=== PATIENT | male | born 1955 | race Caucasian/White ===

== ENCOUNTER → 2019-08-26 10:34 | Outpatient (BNVA) | payer BC, SELFPAY | PROVIDERS: PCP Nurse Practitioner; Visit Provider Nurse Practitioner | DX: Z00.00 Encounter for general adult medical examination without abnormal findings (principal); Z12.5 Encounter for screening for malignant neoplasm of prostate; I10 Essential (primary) hypertension; F52.21 Male erectile disorder | CPT/HCPCS: 81003 ==

== ENCOUNTER → 2019-08-28 09:10 | Outpatient (BNVA) | payer BC, SELFPAY | PROVIDERS: PCP Nurse Practitioner; Visit Provider Nurse Practitioner | DX: Z00.00 Encounter for general adult medical examination without abnormal findings (principal); Z12.5 Encounter for screening for malignant neoplasm of prostate | CPT/HCPCS: 80053; 80061; 83721; G0103 ==

== ENCOUNTER → 2020-05-06 13:04 | Outpatient (BNVA) | payer BC, SELFPAY | PROVIDERS: PCP Nurse Practitioner; Visit Provider Nurse Practitioner Family | DX: Z20.828 Contact with and (suspected) exposure to other viral communicable diseases (principal); Z01.812 Encounter for preprocedural laboratory examination | CPT/HCPCS: 87635 ==

== ENCOUNTER 2020-08-17 10:54 | Observation (INO) | payer OTHER, SELFPAY ==
[2020-08-17] VITALS (17 sets, daily range): BP systolic 122–134; BP diastolic 68–82; PULSE 58–81; RESP 15–25; TEMP 36.5–36.8; O2SAT 91–98; BMI 34.4
--- NOTE | 2020-08-17 10:55 | ECG_ITS ---
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 Measurements Intervals [place] Rate: 67 P: 56 OK: 149 QRS: 21 QRSD: 98 T: 7 QT: 389 QTc: 412 Interpretive Statements SINUS RHYTHM POSSIBLE RIGHT VENTRICULAR CONDUCTION DELAY [RSR (QR) IN V1/V2] NONSPECIFIC T-WAVE ABNORMALITY No previous ECG available for comparison Electronically Signed On 08-17-2020 17:37:30 BILINGUAL RECEPTIONIST by Mac Rojas M.D. [id number] f
--- NOTE | 2020-08-17 10:55 | XR_ITS ---
WS: [id number] Exam: XR chest 1V portable [id number] Date/Time of Exam: 08/17/2020 10:56 AM Reason For Exam: chest pain Findings: The lungs are clear and fully expanded. Costophrenic angles are sharp. No infiltrates. Bronchovascula r relief appears normal. Cardiac silhouette is unremarkable. Bony elements are intact. XR/XR chest 1V portable [id number] IMPRESSION: Unremarkable chest radiograph.
--- NOTE | 2020-08-17 11:16 | W.ED.CHESTPA ---
Documented by User: Jed Lawrence MD 08/17/20 14:26 HPI - Chest Pain History of Present Illness: HPI narrative: The patient is a 65 year old male who comes to ED complaining of midsternal chest pain that started this morning. He went to see his primary care physician who gave him a nitroglycerin, aspirin 325, and started him on oxygen. Within a few minutes of the nitroglycerin pill dissolving in his mouth his chest pain resolved and in the ED he is chest pain-free. The only medication he takes regularly is venlafaxine. He says he has no prior cardiac history but does have obstructive sleep apnea and twice in the past year he has slept without it and had similar midsternal chest pain. He says this particular episode has been going on and off for the past week. This episode today started at rest MD complaint: chest pain Prior episodes: Yes Onset: during rest Pain location: substernal Severity: moderate Relieving factors: nitroglycerin Exacerbating factors: nothing Associated symptoms: Reports no associated symptoms; Deny abdominal pain, dyspnea or palpitations Review of Systems General: Reports: 10 or more systems reviewed and unremarkable except in HPI and below Const: Denies: fatigue Eyes: Denies: change in vision, blurry vision or eye redness ENMT: Denies: throat pain, swelling of lips/tongue, ear or mastoid pain or nasal congestion Card: Reports: chest pain (No chest pain in the ED. He had pain in the primary care's office); Denies: palpitations, irregular heart rhythm, edema, dyspnea on exertion or orthopnea Resp: Denies: dyspnea, productive cough or non-productive cough GI: Denies: abdominal pain, diarrhea or GI cramping : Denies: flank pain, urinary frequency or urinary urgency Musc: Denies: neck pain, back pain, extremity pain, joint pain, joint redness, limited range of motion or muscle weakness Skin/Breast: Denies: rash, pruritus, erythema, skin pain or skin tenderness Neuro: Denies: headache(s), numbness in extremities, weakness in extremities, sensory changes, difficulty walking, dizziness, confusion or Slurred speech present Psych: Denies: anxiety or depression Endo: Denies: polyuria All/Imm: Denies: urticaria, throat swelling or tongue swelling PFS ED PFSH: Medical History (Updated 08/17/20 @ 14:25 by Jed Lawrence MD) 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 History of elevated prostate specific antigen (PSA) Inability to attain erection Nausea Psoriasiform dermatitis Surgical History History of appendectomy History of cholecystectomy History of colonoscopy with polypectomy 2019 in [place], [place] History of hemorrhoids Family History Father Cancer Mother Cancer Social History Smoking and tobacco status: former smoker Second hand smoke exposure: No Smoking risk assessment/counseling performed?: No Alcohol intake: current Alcohol intake frequency: holidays/special occasions only Desire information about alcohol rehabilitation?: No Counseling given: No Desire information about substance/drug rehabilitation?: No Counseling given: No Adopted: No Caregiver/support person: No Lives independently: Yes Household members: spouse Housing: House Marital status: Number of children: 2 service: No Current occupational status: retired Pets and animals: Yes Pets & animals: dog(s) History of recent travel: No Current gender identity: Male Physical Exam Const: COMMON NORMALS: no acute distress, average body habitus, patient oriented x3, no limitations, healthy appearing, alert and well nourished GENERAL APPEARANCE: cooperative, comfortable, well kempt and well developed ORIENTATION/CONSCIOUSNESS: Yes awake, Yes oriented to person, Yes oriented to place and Yes oriented to time HENMT: COMMON NORMALS: normocephalic, external ears normal and Normal external nose present HEAD & SCALP: normal to inspection and normocephalic NOSE: Normal external nose present EXTERNAL EAR: Yes external ears normal MOUTH: Normal oral and palatal mucosa present THROAT: posterior oropharynx normal Eye: COMMON NORMALS: Equal, round and reactive pupils present and EOMs intact bilaterally GENERAL EYE: appearance normal, both eyes and all related structures PUPIL: Yes Equal, round and reactive pupils present Neck/C-Spine: COMMON NORMALS: full ROM, no lymphadenopathy, no meningeal signs and no JVD GENERAL: Yes normal visual inspection Lymph: LYMPHATIC: no lymphadenopathy noted Chest: COMMONS NORMALS: normal inspection of the chest and normal palpation of entire chest wall Resp: COMMON NORMALS: normal respiratory effort, No retractions, No use of accessory muscles, clear to auscultation bilaterally and percussion normal EFFORT & INSPECTION: Yes able to speak in complete sentences AUSCULTATION: clear to auscultation bilaterally PERCUSSION: percussion normal Cardio: COMMON NORMALS: no JVD, regular rate, regular rhythm, S1 normal heart sound present, S2 normal heart sound present and Peripheral pulses 2+ throughout RATE: regular rate RHYTHM: regular rhythm HEART SOUNDS: S1 normal heart sound present and S2 normal heart sound present PERIPHERAL PULSES: Peripheral pulses 2+ throughout GI: COMMON NORMALS: Normal to inspection, nondistended, normoactive bowel sounds present, Soft to palpation, non-tender and no masses INSPECTION: Yes normal to inspection PALPATION: Yes Soft to palpation : COMMON NORMALS: Yes no CVA tenderness BLADDER/KIDNEY EXAM: Yes no CVA tenderness Back/Pelvis: COMMON NORMALS: no CVA tenderness, thoracic and lumbar spine normal to inspection, no thoracic nor lumbar tenderness and thoraco-lumbar ROM normal Extremity: COMMON NORMALS: normal to inspection, full ROM, capillary refill normal, no joint enlargement and no pedal edema GENERAL: Yes normal exam except as noted Neuro: COMMON NORMALS: patient oriented x3, CN's II-XII intact bilaterally, moves all extremities, no focal motor deficits, no sensory deficits noted and gait normal SENSORIUM/ORIENTATION: Yes alert, Yes oriented to person, Yes oriented to place and Yes oriented to time MENINGEAL SIGNS: Yes no meningeal signs Psych: COMMON NORMALS: mental status grossly normal, Normal thought process present, cooperative, normal affect and speech normal APPEARANCE: Yes well kempt ATTITUDE: Yes calm SPEECH: Yes normal speech THOUGHT PROCESS: Normal thought process present Skin: COMMON NORMALS: no rashes or lesions noted GENERAL SKIN EXAM: no rashes or lesions noted Course Vital Signs: Vital signs: Vital Signs Temperature 98.3 F 08/17/20 10:55 Pulse Rate 67 08/17/20 14:10 Respiratory Rate 23 H 08/17/20 14:10 Blood Pressure 127/82 08/17/20 14:10 Pulse Oximetry 96 08/17/20 14:10 MDM - Chest Pain MDM Narrative: Medical decision making narrative: Patient continues to have palpitations here and some left-sided chest pressure. He also has episodes of bradycardia down into the upper 40s low 50s. This is unusual for him. Discussed with Dr. Wilder who accepts for observation. Discussed the case with Dr. Brand who will see him upstairs Lab Data: Labs: Lab Results 08/17/20 08/17/20 08/17/20 Range/Units 11:20 11:20 11:20 WBC 5.6 (4.0-10.0) 10^3/ uL RBC 5.24 (4.1-5.3) 10^6/u L Hgb 15.1 (11.7-16.6) g/dL Hct 44.2 (42.0-52.0) % MCV 84.4 (80-94) fL MCH 28.8 (28.0-34.0) pg MCHC 34.2 (30.0-36.0) g/dL RDW 12.5 (12.1-15.1) % Plt Count 239 (130-400) 10^3/c mm MPV 9.1 (7.4-10.4) fL Neut % (Auto) 55.8 % Lymph % (Auto) 31.0 % Price % (Auto) 11.2 % Eos % (Auto) 1.3 % Baso % (Auto) 0.5 % Neut # (Auto) 3.10 (1.8-7.7) 10^3/u L Lymph # (Auto) 1.7 (0.8-4.8) 10^3/u L Price # (Auto) 0.6 (0.2-0.9) 10^3/u L Eos # (Auto) 0.1 (0.0-0.8) 10^3/u L Baso # (Auto) 0.0 (0.0-0.1) 10^3/u L Nucleated RBC % (a uto) 0 % Nucleated RBCs # 0.0 /100WBC D-Dimer (0-0.59) ug/mIFE U Sodium 141 (136-145) mmol/L Potassium 4.4 (3.5-5.1) mmol/L Chloride 105 (98-107) mmol/L Carbon Dioxide 29 (22-29) mmol/L Anion Gap 11.4 (5-19) BUN 15 (8-23) mg/dL Creatinine 0.9 (0.7-1.2) mg/dL GFR Calculation 85.2 L (90-130) mL/min Glucose 93 (65-115) mg/dL Calculated Osmolal ity 293 (285-295) mOsm/k g Calcium 8.7 (8.5-10.5) mg/dL Total Bilirubin 0.4 (0.15-1.2) mg/dL AST 23 (0-40) U/L ALT 29 (0-41) U/L Alkaline Phosphata se 78 (40-130) IU/L Troponin T Baselin e 6 (0-15) ng/L Troponin T 120 Min [place] (0-15) ng/L Delta Troponin T (0-10) ABS# NT-Pro-B Natriuret Pep 9 (0-125) pg/mL Total Protein 6.2 L (6.6-8.7) g/dL Albumin 4.1 (3.5-5.2) g/dL Globulin 2.1 (1.3-4.6) g/dL 08/17/20 08/17/20 Range/Units 11:20 12:45 WBC (4.0-10.0) 10^3/ uL RBC (4.1-5.3) 10^6/u L Hgb (11.7-16.6) g/dL Hct (42.0-52.0) % MCV (80-94) fL MCH (28.0-34.0) pg MCHC (30.0-36.0) g/dL RDW (12.1-15.1) % Plt Count (130-400) 10^3/c mm MPV (7.4-10.4) fL Neut % (Auto) % Lymph % (Auto) % Price % (Auto) % Eos % (Auto) % Baso % (Auto) % Neut # (Auto) (1.8-7.7) 10^3/u L Lymph # (Auto) (0.8-4.8) 10^3/u L Price # (Auto) (0.2-0.9) 10^3/u L Eos # (Auto) (0.0-0.8) 10^3/u L Baso # (Auto) (0.0-0.1) 10^3/u L Nucleated RBC % (a uto) % Nucleated RBCs # /100WBC D-Dimer <= 0.27 (0-0.59) ug/mIFE U Sodium (136-145) mmol/L Potassium (3.5-5.1) mmol/L Chloride (98-107) mmol/L Carbon Dioxide (22-29) mmol/L Anion Gap (5-19) BUN (8-23) mg/dL Creatinine (0.7-1.2) mg/dL GFR Calculation (90-130) mL/min Glucose (65-115) mg/dL Calculated Osmolal ity (285-295) mOsm/k g Calcium (8.5-10.5) mg/dL Total Bilirubin (0.15-1.2) mg/dL AST (0-40) U/L ALT (0-41) U/L Alkaline Phosphata se (40-130) IU/L Troponin T Baselin e (0-15) ng/L Troponin T 120 Min [place] 7.07 (0-15) ng/L Delta Troponin T 1.07 (0-10) ABS# NT-Pro-B Natriuret Pep (0-125) pg/mL Total Protein (6.6-8.7) g/dL Albumin (3.5-5.2) g/dL Globulin (1.3-4.6) g/dL Discharge Plan Discharge Patient Disposition: Placed in Observation Admit Provider: Nolvia Wilder Clinical Impression: Chest pain Coding Level of Care Code ED Caustic Strength Inspector for Chg Fwd Exam Comprehensive Documented by User: Walt Ochoa MD 08/17/20 12:26 [facility] ED PFSH: Medical History (Updated 08/17/20 @ 14:25 by Jed Lawrence MD) 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 History of elevated prostate specific antigen (PSA) Inability to attain erection Nausea Psoriasiform dermatitis Surgical History History of appendectomy History of cholecystectomy History of colonoscopy with polypectomy 2019 in [place], [place] History of hemorrhoids Family History Father Cancer Mother Cancer Social History Smoking and tobacco status: former smoker Second hand smoke exposure: No Smoking risk assessment/counseling performed?: No Alcohol intake: current Alcohol intake frequency: holidays/special occasions only Desire information about alcohol rehabilitation?: No Counseling given: No Desire information about substance/drug rehabilitation?: No Counseling given: No Adopted: No Caregiver/support person: No Lives independently: Yes Household members: spouse Housing: House Marital status: Number of children: 2 service: No Current occupational status: retired Pets and animals: Yes Pets & animals: dog(s) History of recent travel: No Current gender identity: Male Course Vital Signs: Vital signs: Vital Signs Temperature 98.3 F 08/17/20 10:55 Pulse Rate 67 08/17/20 14:10 Respiratory Rate 23 H 08/17/20 14:10 Blood Pressure 127/82 08/17/20 14:10 Pulse Oximetry 96 08/17/20 14:10 MDM - Chest Pain Lab Data: Labs: Lab Results 08/17/20 08/17/20 08/17/20 Range/Units 11:20 11:20 11:20 WBC 5.6 (4.0-10.0) 10^3/ uL RBC 5.24 (4.1-5.3) 10^6/u L Hgb 15.1 (11.7-16.6) g/dL Hct 44.2 (42.0-52.0) % MCV 84.4 (80-94) fL MCH 28.8 (28.0-34.0) pg MCHC 34.2 (30.0-36.0) g/dL RDW 12.5 (12.1-15.1) % Plt Count 239 (130-400) 10^3/c mm MPV 9.1 (7.4-10.4) fL Neut % (Auto) 55.8 % Lymph % (Auto) 31.0 % Price % (Auto) 11.2 % Eos % (Auto) 1.3 % Baso % (Auto) 0.5 % Neut # (Auto) 3.10 (1.8-7.7) 10^3/u L Lymph # (Auto) 1.7 (0.8-4.8) 10^3/u L Price # (Auto) 0.6 (0.2-0.9) 10^3/u L Eos # (Auto) 0.1 (0.0-0.8) 10^3/u L Baso # (Auto) 0.0 (0.0-0.1) 10^3/u L Nucleated RBC % (a uto) 0 % Nucleated RBCs # 0.0 /100WBC D-Dimer (0-0.59) ug/mIFE U Sodium 141 (136-145) mmol/L Potassium 4.4 (3.5-5.1) mmol/L Chloride 105 (98-107) mmol/L Carbon Dioxide 29 (22-29) mmol/L Anion Gap 11.4 (5-19) BUN 15 (8-23) mg/dL Creatinine 0.9 (0.7-1.2) mg/dL GFR Calculation 85.2 L (90-130) mL/min Glucose 93 (65-115) mg/dL Calculated Osmolal ity 293 (285-295) mOsm/k g Calcium 8.7 (8.5-10.5) mg/dL Total Bilirubin 0.4 (0.15-1.2) mg/dL AST 23 (0-40) U/L ALT 29 (0-41) U/L Alkaline Phosphata se 78 (40-130) IU/L Troponin T Baselin e 6 (0-15) ng/L Troponin T 120 Min [place] (0-15) ng/L Delta Troponin T (0-10) ABS# NT-Pro-B Natriuret Pep 9 (0-125) pg/mL Total Protein 6.2 L (6.6-8.7) g/dL Albumin 4.1 (3.5-5.2) g/dL Globulin 2.1 (1.3-4.6) g/dL 08/17/20 08/17/20 Range/Units 11:20 12:45 WBC (4.0-10.0) 10^3/ uL RBC (4.1-5.3) 10^6/u L Hgb (11.7-16.6) g/dL Hct (42.0-52.0) % MCV (80-94) fL MCH (28.0-34.0) pg MCHC (30.0-36.0) g/dL RDW (12.1-15.1) % Plt Count (130-400) 10^3/c mm MPV (7.4-10.4) fL Neut % (Auto) % Lymph % (Auto) % Price % (Auto) % Eos % (Auto) % Baso % (Auto) % Neut # (Auto) (1.8-7.7) 10^3/u L Lymph # (Auto) (0.8-4.8) 10^3/u L Price # (Auto) (0.2-0.9) 10^3/u L Eos # (Auto) (0.0-0.8) 10^3/u L Baso # (Auto) (0.0-0.1) 10^3/u L Nucleated RBC % (a uto) % Nucleated RBCs # /100WBC D-Dimer <= 0.27 (0-0.59) ug/mIFE U Sodium (136-145) mmol/L Potassium (3.5-5.1) mmol/L Chloride (98-107) mmol/L Carbon Dioxide (22-29) mmol/L Anion Gap (5-19) BUN (8-23) mg/dL Creatinine (0.7-1.2) mg/dL GFR Calculation (90-130) mL/min Glucose (65-115) mg/dL Calculated Osmolal ity (285-295) mOsm/k g Calcium (8.5-10.5) mg/dL Total Bilirubin (0.15-1.2) mg/dL AST (0-40) U/L ALT (0-41) U/L Alkaline Phosphata se (40-130) IU/L Troponin T Baselin e (0-15) ng/L Troponin T 120 Min [place] 7.07 (0-15) ng/L Delta Troponin T 1.07 (0-10) ABS# NT-Pro-B Natriuret Pep (0-125) pg/mL Total Protein (6.6-8.7) g/dL Albumin (3.5-5.2) g/dL Globulin (1.3-4.6) g/dL Discharge Plan Discharge Patient Disposition: Placed in Observation Admit Provider: Nolvia Wilder Clinical Impression: Chest pain Coding Level of Care Code ED Caustic Strength Inspector for Chg Fwd Exam Comprehensive Documented by User: Marianna Rolon RN 08/17/20 15:17 PFSH ED PFSH: Medical History (Updated 08/17/20 @ 14:25 by Jed Lawrence MD) 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 History of elevated prostate specific antigen (PSA) Inability to attain erection Nausea Psoriasiform dermatitis Surgical History History of appendectomy History of cholecystectomy History of colonoscopy with polypectomy 2019 in [place], [place] History of hemorrhoids Family History Father Cancer Mother Cancer Social History Smoking and tobacco status: former smoker Second hand smoke exposure: No Smoking risk assessment/counseling performed?: No Alcohol intake: current Alcohol intake frequency: holidays/special occasions only Desire information about alcohol rehabilitation?: No Counseling given: No Desire information about substance/drug rehabilitation?: No Counseling given: No Adopted: No Caregiver/support person: No Lives independently: Yes Household members: spouse Housing: House Marital status: Number of children: 2 service: No Current occupational status: retired Pets and animals: Yes Pets & animals: dog(s) History of recent travel: No Current gender identity: Male Course Vital Signs: Vital signs: Vital Signs Temperature 98.3 F 08/17/20 10:55 Pulse Rate 67 08/17/20 14:10 Respiratory Rate 23 H 08/17/20 14:10 Blood Pressure 127/82 08/17/20 14:10 Pulse Oximetry 96 08/17/20 14:10 MDM - Chest Pain Lab Data: Labs: Lab Results 08/17/20 08/17/20 08/17/20 Range/Units 11:20 11:20 11:20 WBC 5.6 (4.0-10.0) 10^3/ uL RBC 5.24 (4.1-5.3) 10^6/u L Hgb 15.1 (11.7-16.6) g/dL Hct 44.2 (42.0-52.0) % MCV 84.4 (80-94) fL MCH 28.8 (28.0-34.0) pg MCHC 34.2 (30.0-36.0) g/dL RDW 12.5 (12.1-15.1) % Plt Count 239 (130-400) 10^3/c mm MPV 9.1 (7.4-10.4) fL Neut % (Auto) 55.8 % Lymph % (Auto) 31.0 % Price % (Auto) 11.2 % Eos % (Auto) 1.3 % Baso % (Auto) 0.5 % Neut # (Auto) 3.10 (1.8-7.7) 10^3/u L Lymph # (Auto) 1.7 (0.8-4.8) 10^3/u L Price # (Auto) 0.6 (0.2-0.9) 10^3/u L Eos # (Auto) 0.1 (0.0-0.8) 10^3/u L Baso # (Auto) 0.0 (0.0-0.1) 10^3/u L Nucleated RBC % (a uto) 0 % Nucleated RBCs # 0.0 /100WBC D-Dimer (0-0.59) ug/mIFE U Sodium 141 (136-145) mmol/L Potassium 4.4 (3.5-5.1) mmol/L Chloride 105 (98-107) mmol/L Carbon Dioxide 29 (22-29) mmol/L Anion Gap 11.4 (5-19) BUN 15 (8-23) mg/dL Creatinine 0.9 (0.7-1.2) mg/dL GFR Calculation 85.2 L (90-130) mL/min Glucose 93 (65-115) mg/dL Calculated Osmolal ity 293 (285-295) mOsm/k g Calcium 8.7 (8.5-10.5) mg/dL Total Bilirubin 0.4 (0.15-1.2) mg/dL AST 23 (0-40) U/L ALT 29 (0-41) U/L Alkaline Phosphata se 78 (40-130) IU/L Troponin T Baselin e 6 (0-15) ng/L Troponin T 120 Min [place] (0-15) ng/L Delta Troponin T (0-10) ABS# NT-Pro-B Natriuret Pep 9 (0-125) pg/mL Total Protein 6.2 L (6.6-8.7) g/dL Albumin 4.1 (3.5-5.2) g/dL Globulin 2.1 (1.3-4.6) g/dL 08/17/20 08/17/20 Range/Units 11:20 12:45 WBC (4.0-10.0) 10^3/ uL RBC (4.1-5.3) 10^6/u L Hgb (11.7-16.6) g/dL Hct (42.0-52.0) % MCV (80-94) fL MCH (28.0-34.0) pg MCHC (30.0-36.0) g/dL RDW (12.1-15.1) % Plt Count (130-400) 10^3/c mm MPV (7.4-10.4) fL Neut % (Auto) % Lymph % (Auto) % Price % (Auto) % Eos % (Auto) % Baso % (Auto) % Neut # (Auto) (1.8-7.7) 10^3/u L Lymph # (Auto) (0.8-4.8) 10^3/u L Price # (Auto) (0.2-0.9) 10^3/u L Eos # (Auto) (0.0-0.8) 10^3/u L Baso # (Auto) (0.0-0.1) 10^3/u L Nucleated RBC % (a uto) % Nucleated RBCs # /100WBC D-Dimer <= 0.27 (0-0.59) ug/mIFE U Sodium (136-145) mmol/L Potassium (3.5-5.1) mmol/L Chloride (98-107) mmol/L Carbon Dioxide (22-29) mmol/L Anion Gap (5-19) BUN (8-23) mg/dL Creatinine (0.7-1.2) mg/dL GFR Calculation (90-130) mL/min Glucose (65-115) mg/dL Calculated Osmolal ity (285-295) mOsm/k g Calcium (8.5-10.5) mg/dL Total Bilirubin (0.15-1.2) mg/dL AST (0-40) U/L ALT (0-41) U/L Alkaline Phosphata se (40-130) IU/L Troponin T Baselin e (0-15) ng/L Troponin T 120 Min [place] 7.07 (0-15) ng/L Delta Troponin T 1.07 (0-10) ABS# NT-Pro-B Natriuret Pep (0-125) pg/mL Total Protein (6.6-8.7) g/dL Albumin (3.5-5.2) g/dL Globulin (1.3-4.6) g/dL Discharge Plan Discharge Patient Disposition: Placed in Observation Admit Provider: Nolvia Wilder Clinical Impression: Chest pain Coding Level of Care Code ED Caustic Strength Inspector for g Fwd Exam Comprehensive
[2020-08-17 11:31] LABS: Basophils % 0.5 %; Eosinophils # 0.1 10^3/uL (0.0-0.8); Eosinophils % 1.3 %; Hematocrit 44.2 % (42.0-52.0); Hemoglobin 15.1 g/dL (11.7-16.6); Lymphocytes # 1.7 10^3/uL (0.8-4.8); Mean Corpuscular HGB Conc 34.2 g/dL (30.0-36.0); Mean Corpuscular Hemoglobin 28.8 pg (28.0-34.0); Mean Corpuscular Volume 84.4 fL (80-94); Mean Platelet Volume 9.1 fL (7.4-10.4); Monocytes # 0.6 10^3/uL (0.2-0.9); Monocytes % 11.2 %; Neutrophils % 55.8 %; Nucleated Red Blood Cells % 0 %; Platelet Count 239 10^3/cmm (130-400); Red Blood Count 5.24 10^6/uL (4.1-5.3); Red Cell Distribution Width 12.5 % (12.1-15.1); White Blood Count 5.6 10^3/uL (4.0-10.0)
--- NOTE | 2020-08-17 11:48 | PC.PHAR ---
PT STATES HE TAKES 4 TO 5 TABS OF LISINOPRIL 10MG WHEN HE NEEDS THEM-PT STATES HE HAS BEEN OUT FOR A MONTH OR LONGER-EXT MED HISTORY SHOWS LAST FILLED ON 08/26/2019 90D/S FOR 10MG DAILY
[2020-08-17 11:49] LABS: Troponin(5th) Baseline 6 ng/L (0-15)
[2020-08-17 11:57] LABS: Alanine Aminotransferase 29 U/L (0-41); Albumin Level 4.1 g/dL (3.5-5.2); Alkaline Phosphatase 78 IU/L (40-130); Anion Gap 11.4 (5-19); Aspartate Amino Transferase 23 U/L (0-40); Blood Urea Nitrogen 15 mg/dL (8-23); Calcium 8.7 mg/dL (8.5-10.5); Carbon Dioxide 29 mmol/L (22-29); Chloride 105 mmol/L (98-107); Globulin 2.1 g/dL (1.3-4.6); Glomerular Filtration Rate 85.2 mL/min (90-130); Glucose 93 mg/dL (65-115); NT Pro B Type Natriuretic Pept 9 pg/mL (0-125); Osmolality Calculated 293 mOsm/kg (285-295); Potassium 4.4 mmol/L (3.5-5.1); Sodium 141 mmol/L (136-145); Total Bilirubin 0.4 mg/dL (0.15-1.2); Total Protein 6.2 g/dL (6.6-8.7)
[2020-08-17 12:01] LABS: D Dimer <= 0.27 ug/mIFEU (0-0.59)
--- NOTE | 2020-08-17 12:55 | ECG_ITS ---
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 Measurements Intervals [place] Rate: 56 P: 49 VT: 146 QRS: 26 QRSD: 102 T: 15 QT: 417 QTc: 403 Interpretive Statements SINUS BRADYCARDIA POSSIBLE RIGHT VENTRICULAR CONDUCTION DELAY [RSR (QR) IN V1/V2] Compared to ECG 08/17/2020 10:58:17 Sinus rhythm no longer present T-wave abnormality no longer present Electronically Signed On 08-17-2020 17:44:53 [employer] by Mac Rojas M.D. [id number]
[2020-08-17 13:12] LABS: Troponin 5 2HR 7.07 ng/L (0-15); Troponin 5 2HR Delta 1.07 ABS# (0-10)
--- NOTE | 2020-08-17 15:32 | W.ED.CHESTPA ---
HPI - Chest Pain General: Chief Complaint: Chest Pain Stated Complaint: CHEST PAIN X 4 DAYS Time Seen by Provider: 08/17/20 10:56 History of Present Illness: HPI narrative: HPI narrative: The patient is a 65 year old male who comes to ED complaining of midsternal chest pain that started this morning. He went to see his primary care physician who gave him a nitroglycerin, aspirin 325, and started him on oxygen. Within a few minutes of the nitroglycerin pill dissolving in his mouth his chest pain resolved and in the ED he is chest pain-free. The only medication he takes regularly is venlafaxine. He says he has no prior cardiac history but does have obstructive sleep apnea and twice in the past year he has slept without it and had similar midsternal chest pain. He says this particular episode has been going on and off for the past week. This episode today started at rest MD complaint: chest pain Onset (ago): hour(s) (1) Onset: during rest Pain location: substernal Relieving factors: nitroglycerin Exacerbating factors: nothing Associated symptoms: Reports no associated symptoms and palpitations; Deny abdominal pain or dyspnea Review of Systems General: Reports: 10 or more systems reviewed and unremarkable except in HPI and below Const: Denies: fatigue Eyes: Denies: change in vision, blurry vision or eye redness ENMT: Denies: throat pain, swelling of lips/tongue, ear or mastoid pain or nasal congestion Card: Reports: chest pain and palpitations; Denies: irregular heart rhythm, edema, dyspnea on exertion or orthopnea Resp: Denies: dyspnea, productive cough or non-productive cough GI: Denies: abdominal pain, diarrhea or GI cramping : Denies: flank pain, urinary frequency or urinary urgency Musc: Denies: neck pain, back pain, extremity pain, joint pain, joint redness, limited range of motion or muscle weakness Skin/Breast: Denies: rash, pruritus, erythema, skin pain or skin tenderness Neuro: Denies: headache(s), numbness in extremities, weakness in extremities, sensory changes, difficulty walking, dizziness, confusion or Slurred speech present Psych: Denies: anxiety or depression Endo: Denies: polyuria All/Imm: Denies: urticaria, throat swelling or tongue swelling PFS ED PFSH: Medical History (Updated 08/17/20 @ 14:25 by Jed Lawrence MD) 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 History of elevated prostate specific antigen (PSA) Inability to attain erection Nausea Psoriasiform dermatitis Surgical History History of appendectomy History of cholecystectomy History of colonoscopy with polypectomy 2019 in [place], [place] History of hemorrhoids Family History Father Cancer Mother Cancer Social History Smoking and tobacco status: former smoker Second hand smoke exposure: No Smoking risk assessment/counseling performed?: No Alcohol intake: current Alcohol intake frequency: holidays/special occasions only Desire information about alcohol rehabilitation?: No Counseling given: No Desire information about substance/drug rehabilitation?: No Counseling given: No Adopted: No Caregiver/support person: No Lives independently: Yes Household members: spouse Housing: House Marital status: Number of children: 2 service: No Current occupational status: retired Pets and animals: Yes Pets & animals: dog(s) History of recent travel: No Current gender identity: Male Physical Exam Const: COMMON NORMALS: no acute distress, average body habitus, patient oriented x3, no limitations, healthy appearing, alert and well nourished GENERAL APPEARANCE: cooperative, comfortable, well kempt and well developed ORIENTATION/CONSCIOUSNESS: Yes awake, Yes oriented to person, Yes oriented to place and Yes oriented to time HENMT: COMMON NORMALS: normocephalic, external ears normal and Normal external nose present HEAD & SCALP: normal to inspection and normocephalic NOSE: Normal external nose present EXTERNAL EAR: Yes external ears normal MOUTH: Normal oral and palatal mucosa present THROAT: posterior oropharynx normal Eye: COMMON NORMALS: Equal, round and reactive pupils present and EOMs intact bilaterally GENERAL EYE: appearance normal, both eyes and all related structures PUPIL: Yes Equal, round and reactive pupils present Neck/C-Spine: COMMON NORMALS: full ROM, no lymphadenopathy, no meningeal signs and no JVD GENERAL: Yes normal visual inspection Lymph: LYMPHATIC: no lymphadenopathy noted Chest: COMMONS NORMALS: normal inspection of the chest and normal palpation of entire chest wall Resp: COMMON NORMALS: normal respiratory effort, No retractions, No use of accessory muscles, clear to auscultation bilaterally and percussion normal EFFORT & INSPECTION: Yes able to speak in complete sentences AUSCULTATION: clear to auscultation bilaterally PERCUSSION: percussion normal Cardio: COMMON NORMALS: no JVD, regular rate, regular rhythm, S1 normal heart sound present, S2 normal heart sound present and Peripheral pulses 2+ throughout RATE: regular rate RHYTHM: regular rhythm HEART SOUNDS: S1 normal heart sound present and S2 normal heart sound present PERIPHERAL PULSES: Peripheral pulses 2+ throughout GI: COMMON NORMALS: Normal to inspection, nondistended, normoactive bowel sounds present, Soft to palpation, non-tender and no masses INSPECTION: Yes normal to inspection PALPATION: Yes Soft to palpation : COMMON NORMALS: Yes no CVA tenderness BLADDER/KIDNEY EXAM: Yes no CVA tenderness Back/Pelvis: COMMON NORMALS: no CVA tenderness, thoracic and lumbar spine normal to inspection, no thoracic nor lumbar tenderness and thoraco-lumbar ROM normal Extremity: COMMON NORMALS: normal to inspection, full ROM, capillary refill normal, no joint enlargement and no pedal edema GENERAL: Yes normal exam except as noted Neuro: COMMON NORMALS: patient oriented x3, CN's II-XII intact bilaterally, moves all extremities, no focal motor deficits, no sensory deficits noted and gait normal SENSORIUM/ORIENTATION: Yes alert, Yes oriented to person, Yes oriented to place and Yes oriented to time MENINGEAL SIGNS: Yes no meningeal signs Psych: COMMON NORMALS: mental status grossly normal, Normal thought process present, cooperative, normal affect and speech normal APPEARANCE: Yes well kempt ATTITUDE: Yes calm SPEECH: Yes normal speech THOUGHT PROCESS: Normal thought process present Skin: COMMON NORMALS: no rashes or lesions noted GENERAL SKIN EXAM: no rashes or lesions noted Course Vital Signs: Vital signs: Vital Signs Temperature 98.3 F 08/17/20 10:55 Pulse Rate 67 08/17/20 14:10 Respiratory Rate 23 H 08/17/20 14:10 Blood Pressure 127/82 08/17/20 14:10 Pulse Oximetry 96 08/17/20 14:10 MDM - Chest Pain MDM Narrative: Medical decision making narrative: Medical decision making narrative: Patient continues to have palpitations here and some left-sided chest pressure. He also has episodes of bradycardia down into the upper 40s low 50s. This is unusual for him. Discussed with Dr. Wilder who accepts for observation. Discussed the case with Dr. Brand who will see him upstairs Lab Data: Labs: Lab Results 08/17/20 08/17/20 08/17/20 Range/Units 11:20 11:20 11:20 WBC 5.6 (4.0-10.0) 10^3/ uL RBC 5.24 (4.1-5.3) 10^6/u L Hgb 15.1 (11.7-16.6) g/dL Hct 44.2 (42.0-52.0) % MCV 84.4 (80-94) fL MCH 28.8 (28.0-34.0) pg MCHC 34.2 (30.0-36.0) g/dL RDW 12.5 (12.1-15.1) % Plt Count 239 (130-400) 10^3/c mm MPV 9.1 (7.4-10.4) fL Neut % (Auto) 55.8 % Lymph % (Auto) 31.0 % Williamson % (Auto) 11.2 % Eos % (Auto) 1.3 % Baso % (Auto) 0.5 % Neut # (Auto) 3.10 (1.8-7.7) 10^3/u L Lymph # (Auto) 1.7 (0.8-4.8) 10^3/u L [place] # (Auto) 0.6 (0.2-0.9) 10^3/u L Eos # (Auto) 0.1 (0.0-0.8) 10^3/u L Baso # (Auto) 0.0 (0.0-0.1) 10^3/u L Nucleated RBC % (a uto) 0 % Nucleated RBCs # 0.0 /100WBC D-Dimer (0-0.59) ug/mIFE U Sodium 141 (136-145) mmol/L Potassium 4.4 (3.5-5.1) mmol/L Chloride 105 (98-107) mmol/L Carbon Dioxide 29 (22-29) mmol/L Anion Gap 11.4 (5-19) BUN 15 (8-23) mg/dL Creatinine 0.9 (0.7-1.2) mg/dL GFR Calculation 85.2 L (90-130) mL/min Glucose 93 (65-115) mg/dL Calculated Osmolal ity 293 (285-295) mOsm/k g Calcium 8.7 (8.5-10.5) mg/dL Total Bilirubin 0.4 (0.15-1.2) mg/dL AST 23 (0-40) U/L ALT 29 (0-41) U/L Alkaline Phosphata se 78 (40-130) IU/L Troponin T Baselin e 6 (0-15) ng/L Troponin T 120 Min [place] (0-15) ng/L Delta Troponin T (0-10) ABS# NT-Pro-B Natriuret Pep 9 (0-125) pg/mL Total Protein 6.2 L (6.6-8.7) g/dL Albumin 4.1 (3.5-5.2) g/dL Globulin 2.1 (1.3-4.6) g/dL 08/17/20 08/17/20 Range/Units 11:20 12:45 WBC (4.0-10.0) 10^3/ uL RBC (4.1-5.3) 10^6/u L Hgb (11.7-16.6) g/dL Hct (42.0-52.0) % MCV (80-94) fL MCH (28.0-34.0) pg MCHC (30.0-36.0) g/dL RDW (12.1-15.1) % Plt Count (130-400) 10^3/c mm MPV (7.4-10.4) fL Neut % (Auto) % Lymph % (Auto) % [place] % (Auto) % Eos % (Auto) % Baso % (Auto) % Neut # (Auto) (1.8-7.7) 10^3/u L Lymph # (Auto) (0.8-4.8) 10^3/u L [place] # (Auto) (0.2-0.9) 10^3/u L Eos # (Auto) (0.0-0.8) 10^3/u L Baso # (Auto) (0.0-0.1) 10^3/u L Nucleated RBC % (a uto) % Nucleated RBCs # /100WBC D-Dimer <= 0.27 (0-0.59) ug/mIFE U Sodium (136-145) mmol/L Potassium (3.5-5.1) mmol/L Chloride (98-107) mmol/L Carbon Dioxide (22-29) mmol/L Anion Gap (5-19) BUN (8-23) mg/dL Creatinine (0.7-1.2) mg/dL GFR Calculation (90-130) mL/min Glucose (65-115) mg/dL Calculated Osmolal ity (285-295) mOsm/k g Calcium (8.5-10.5) mg/dL Total Bilirubin (0.15-1.2) mg/dL AST (0-40) U/L ALT (0-41) U/L Alkaline Phosphata se (40-130) IU/L Troponin T Baselin e (0-15) ng/L Troponin T 120 Min [place] 7.07 (0-15) ng/L Delta Troponin T 1.07 (0-10) ABS# NT-Pro-B Natriuret Pep (0-125) pg/mL Total Protein (6.6-8.7) g/dL Albumin (3.5-5.2) g/dL Globulin (1.3-4.6) g/dL Discharge Plan Discharge Patient Disposition: Placed in Observation Admit Provider: Nolvia Wilder Clinical Impression: Chest pain Coding Level of Care Code ED Taping 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
--- NOTE | 2020-08-17 16:35 | PC.NURSE ---
admitted in to room 111-2 at 1540,from er.report received.pt is alert and oriented x 4.denies chest pain at present .sr on monitor.oriented to room environment.instructed to notify staff for any chest pain,sob,dizziness...or for any concerns at all.pt verb understanding of instructions
--- NOTE | 2020-08-17 16:55 | ECG_ITS ---
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 Measurements Intervals [place] Rate: 73 P: 56 [place]: 149 QRS: -3 QRSD: 99 T: 18 QT: 377 QTc: 417 Interpretive Statements SINUS RHYTHM POSSIBLE RIGHT VENTRICULAR CONDUCTION DELAY [RSR (QR) IN V1/V2] NONSPECIFIC T-WAVE ABNORMALITY Compared to ECG 08/17/2020 12:56:23 T-wave abnormality now present Sinus bradycardia no longer present Electronically Signed On 08-17-2020 17:42:04 PLASTIC PARTS DESIGNER by Mac Rojas M.D. [id number]
--- NOTE | 2020-08-17 19:03 | P.HP_ITS ---
Providers/Chief Complaint Admitting Physician: Nolvia Wilder MD Chief Complaint: CHEST PAIN X 4 DAYS History of Present Illness Dagoberto Patel is a 65 year old male with PMH HTN, dyslipidemia presented with 4 days of chest pain, described as retrosternal chest discomfort radiating up to chin, 4-5/10 intensity, non radiating. No discernable aggravating or relieving factors. States he was able to walk approx 200ft on flat surface without wirsening of chest pain, however did not feel very comfortable . Relieved with sublingual nitrates. EKG without acute changes today, troponin series pending, baseline WNL. Apart from these 4 days of chest pain also reports intermittent episodes of diaphoresis, dizziness, tingling over body over the past 2-3 years, co relating with HR drop to 50. Patient had attributed these to hypoglycemia, though he is not diabetic , states usually relived with food. Review of Systems General: Reports: 10 or more systems reviewed and unremarkable except in HPI and below Const: Denies: fever(s), chills or body aches Eyes: Denies: change in vision, blurry vision or photophobia ENMT: Reports: hoarseness; Denies: throat pain, enlarged tonsils, odynophagia or nasal congestion Card: Denies: chest pain, palpitations, irregular heart rhythm, edema, swelling of feet/ankles, lightheadedness, pre-syncope, dyspnea on exertion or orthopnea Resp: Denies: dyspnea, productive cough, non-productive cough, wheezing, stridor, pain on inspiration, change in phlegm color, hemoptysis or chest congestion GI: Denies: abdominal pain, nausea, vomiting, hematemesis, coffee ground emesis, dysphagia, heartburn, diarrhea, constipation, GI cramping, change in st ool character, hematochezia or melena : Denies: flank pain, dysuria, urinary frequency, urinary urgency, urinary hesitancy or hematuria Musc: Denies: neck pain, back pain, extremity pain, joint swelling, joint warmth or deformity Neuro: Denies: headache(s), numbness in extremities, weakness in extremities, sensory changes, difficulty walking, frequent falls, dizziness, vertigo, behavioral changes, Slurred speech present or seizure-like activity Psych: Denies: anxiety, depression, suicidal ideation or homicidal ideation Endo: Denies: polyuria, polydipsia, tired all the time, cold intolerance or hot flashes Adam/Lymph: Denies: easy bruising or easy bleeding Medications/Allergies Home Medications Medication Instructions Recorded Confirmed Last Taken Type cpap #1 ea 09/09/19 08/17/20 Unknown Rx lisinopril See Rx Instructions .ROUTE .COMPLEX 08/17/20 08/17/20 Unknown History naproxen 1,000 mg PO PRN 08/17/20 08/17/20 Unknown History venlafaxine 150 mg PO DAILY@07 08/17/20 08/17/20 08/17/20 07:00 History Allergies Allergy/AdvReac Type Severity Reaction Status Date / Time butorphanol [From Stadol] Allergy mean Verified 08/17/20 11:48 behaviors codeine Allergy stomach Verified 08/17/20 11:48 pain PFSH Acute PFSH: Medical History 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: No Counseling given: No Desire information about substance/drug rehabilitation?: No Counseling given: No Adopted: No Caregiver/support person: No Lives independently: Yes Household members: spouse Housing: House Marital status: Number of children: 2 service: No Current occupational status: retired Pets and animals: Yes Pets & animals: dog(s) History of recent travel: No Current gender identity: Male Vitals/I&O/Wt Last Vital Signs Temp 98.3 F 08/17/20 10:55 Pulse 76 08/17/20 18:00 Resp 18 08/17/20 18:00 BP 130/78 08/17/20 18:00 Pulse Ox 94 08/17/20 18:00 Weight last 48 hrs Weight 108.862 kg Physical Exam Const: COMMON NORMALS: no acute distress, average body habitus, patient oriented x3, no limitations, healthy appearing, alert and well nourished HENMT: COMMON NORMALS: normocephalic and atraumatic HEAD & SCALP: normocephalic and atraumatic Eye: COMMON NORMALS: Equal, round and reactive pupils present, EOMs intact bilaterally, conjunctivae normal and no scleral icterus CONJUNCTIVA: Yes conjunctivae normal PUPIL: Yes Equal, round and reactive pupils present Neck/C-Spine: COMMON NORMALS: no JVD Resp: COMMON NORMALS: normal respiratory effort, No retractions, No use of accessory muscles, clear to auscultation bilaterally and percussion normal AUSCULTATION: clear to auscultation bilaterally PERCUSSION: percussion normal Cardio: COMMON NORMALS: no JVD, regular rate, regular rhythm, S1 normal heart sound present, S2 normal heart sound present, No gallops present (Cardio), No clicks present (Cardio), No murmurs present (Cardio), No rub (Cardio) and Peripheral pulses 2+ throughout RATE: regular rate RHYTHM: regular rhythm HEART SOUNDS: S1 normal heart sound present and S2 normal heart sound present PERIPHERAL PULSES: Peripheral pulses 2+ throughout GI: COMMON NORMALS: Normal to inspection, nondistended, normoactive bowel sounds present, Soft to palpation, non-tender, No hepatosplenomegaly present, no masses and no bruits PALPATION: Yes Soft to palpation and Yes No hepatosplenomegaly present Extremity: COMMON NORMALS: normal to inspection, full ROM, capillary refill normal, no joint enlargement, no clubbing, cyanosis or edema, no calf tenderness and no pedal edema Neuro: COMMON NORMALS: patient oriented x3, CN's II-XII intact bilaterally, moves all extremities, no focal motor deficits, no sensory deficits noted, deep tendon reflexes 2+ bilaterally and gait normal SENSORIUM/ORIENTATION: Yes alert Psych: COMMON NORMALS: mental status grossly normal, Normal thought process present, cooperative, normal affect, speech normal, activity/motor behavior normal, denies hallucinations, denies homicidal ideation and denies suicidal ideation SPEECH: Yes normal speech THOUGHT PROCESS: Normal thought process present Skin: COMMON NORMALS: no rashes or lesions noted, no wounds, turgor normal, no jaundice, no petechiae and no mottling GENERAL SKIN EXAM: no rashes or lesions noted and turgor normal Data : 08/17/20 11:20 08/17/20 11:20 Other Labs: Laboratory Results WBC 5.6 10^3/uL (4.0-10.0) 08/17/20 11:20 RBC 5.24 10^6/uL (4.1-5.3) 08/17/20 11:20 Hgb 15.1 g/dL (11.7-16.6) 08/17/20 11:20 Hct 44.2 % (42.0-52.0) 08/17/20 11:20 MCV 84.4 fL (80-94) 08/17/20 11:20 MCH 28.8 pg (28.0-34.0) 08/17/20 11:20 MCHC 34.2 g/dL (30.0-36.0) 08/17/20 11:20 RDW 12.5 % (12.1-15.1) 08/17/20 11:20 Plt Count 239 10^3/cmm (130-400) 08/17/20 11:20 MPV 9.1 fL (7.4-10.4) 08/17/20 11:20 Neut % (Auto) 55.8 % 08/17/20 11:20 Lymph % (Auto) 31.0 % 08/17/20 11:20 [place] % (Auto) 11.2 % 08/17/20 11:20 Eos % (Auto) 1.3 % 08/17/20 11:20 Baso % (Auto) 0.5 % 08/17/20 11:20 Neut # (Auto) 3.10 10^3/uL (1.8-7.7) 08/17/20 11:20 Lymph # (Auto) 1.7 10^3/uL (0.8-4.8) 08/17/20 11:20 [place] # (Auto) 0.6 10^3/uL (0.2-0.9) 08/17/20 11:20 Eos # (Auto) 0.1 10^3/uL (0.0-0.8) 08/17/20 11:20 Baso # (Auto) 0.0 10^3/uL (0.0-0.1) 08/17/20 11:20 Nucleated RBC % (auto) 0 % 08/17/20 11:20 Nucleated RBCs # 0.0 /100WBC 08/17/20 11:20 D-Dimer <= 0.27 ug/mIFEU (0-0.59) 08/17/20 11:20 Sodium 141 mmol/L (136-145) 08/17/20 11:20 Potassium 4.4 mmol/L (3.5-5.1) 08/17/20 11:20 Chloride 105 mmol/L (98-107) 08/17/20 11:20 Carbon Dioxide 29 mmol/L (22-29) 08/17/20 11:20 Anion Gap 11.4 (5-19) 08/17/20 11:20 BUN 15 mg/dL (8-23) 08/17/20 11:20 Creatinine 0.9 mg/dL (0.7-1.2) 08/17/20 11:20 GFR Calculation 85.2 mL/min (90-130) L 08/17/20 11:20 Glucose 93 mg/dL (65-115) 08/17/20 11:20 Calculated Osmolality 293 mOsm/kg (285-295) 08/17/20 11:20 Calcium 8.7 mg/dL (8.5-10.5) 08/17/20 11:20 Total Bilirubin 0.4 mg/dL (0.15-1.2) 08/17/20 11:20 AST 23 U/L (0-40) 08/17/20 11:20 ALT 29 U/L (0-41) 08/17/20 11:20 Alkaline Phosphatase 78 IU/L (40-130) 08/17/20 11:20 Troponin T Baseline 6 ng/L (0-15) 08/17/20 11:20 Troponin T 120 Minute 7.07 ng/L (0-15) 08/17/20 12:45 Delta Troponin T 1.07 ABS# (0-10) 08/17/20 12:45 NT-Pro-B Natriuret Pep 9 pg/mL (0-125) 08/17/20 11:20 Total Protein 6.2 g/dL (6.6-8.7) L 08/17/20 11:20 Albumin 4.1 g/dL (3.5-5.2) 08/17/20 11:20 Globulin 2.1 g/dL (1.3-4.6) 08/17/20 11:20 Triglycerides 433 mg/dL (0-150) H 08/17/20 11:20 Cholesterol 192 mg/dL (0-200) 08/17/20 11:20 LDL Cholesterol Direct 120 mg/dL (0-100) H 08/17/20 11:20 LDL Cholesterol, Calc Not Reportable 08/17/20 11:20 HDL Cholesterol 27 mg/dL (60-100) L 08/17/20 11:20 LDL/HDL Ratio Not Reportable 08/17/20 11:20 Cholesterol/HDL Ratio 7.11 mg/dL (1.0-5.00) H 08/17/20 11:20 Impressions Chest X-Ray 08/17/20 10:55 IMPRESSION: Unremarkable chest radiograph. A&P Assessment and plan (1) Chest pain: no acute st-t wave changes, baseline trop negative, pending serial deltas risk factors for CVD include HTN, dyslipidemia Stress test in am as syptoms concerning for angina last stress test per patient was 15 years ago (treadmill test) which he could not complete, may have had some wall motion abnormalities on echo but he is unsure, angiogram was normal. 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
[2020-08-17 19:29] LABS: Chol HDL Ratio 7.11 mg/dL (1.0-5.00); Cholesterol 192 mg/dL (0-200); HDL Cholesterol 27 mg/dL (60-100); Triglycerides 433 mg/dL (0-150)
--- NOTE | 2020-08-17 20:16 | P.CONIM_ITS ---
Providers/Reason For Consult Consulting Physican/Specialty*: Cardiology Reason for Consult*: Chest pain Attending Physician: Nolvia Wilder MD History of Present Illness History of Present Illness Dagoberto Patel is a 65 year old male past medical history significant for obesity, hypertension, obstructive sleep apnea hypertriglyceridemia presented with 4 days of recurrent off-and-on chest pain. Pain characteristics is central radiating towards neck mostly at rest denies any exertional component to it but he is not sure. Since pain became more frequent and intense he decided to come to the ER. Initial cardiac markers and EKG was not suggestive of acute coronary syndrome he was admitted to rule out. It is the reason I have been asked to assess him. Review of Systems General: Reports: 10 or more systems reviewed and unremarkable except in HPI and below Const: Denies: fatigue Eyes: Denies: change in vision, blurry vision or eye redness ENMT: Denies: throat pain, swelling of lips/tongue, ear or mastoid pain or nasal congestion Card: Reports: chest pain and palpitations; Denies: irregular heart rhythm, edema, dyspnea on exertion or orthopnea Resp: Denies: dyspnea, productive cough or non-productive cough GI: Denies: abdominal pain, diarrhea or GI cramping : Denies: flank pain, urinary frequency or urinary urgency Musc: Denies: neck pain, back pain, extremity pain, joint pain, joint redness, joint warmth, limited range of motion or muscle weakness Skin/Breast: Denies: rash, pruritus, erythema, skin pain or skin tenderness Neuro: Denies: headache(s), numbness in extremities, weakness in extremities, sensory changes, difficulty walking, dizziness, confusion or Slurred speech present Psych: Denies: anxiety or depression Endo: Denies: polyuria All/Imm: Denies: urticaria, throat swelling or tongue swelling Meds/Allergies Home Medications and Allergies Home Medications Medication Instructions Recorded Confirmed Last Taken Type cpap #1 ea 09/09/19 08/17/20 Unknown Rx lisinopril See Rx Instructions .ROUTE .COMPLEX 08/17/20 08/17/20 Unknown History naproxen 1,000 mg PO PRN 08/17/20 08/17/20 Unknown History venlafaxine 150 mg PO DAILY@07 08/17/20 08/17/20 08/17/20 07:00 History Allergies Allergy/AdvReac Type Severity Reaction Status Date / Time butorphanol [From Stadol] Allergy mean Verified 08/17/20 11:48 behaviors codeine Allergy stomach Verified 08/17/20 11:48 pain PFSH Acute PFSH: Medical History 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 Dyslipidemia History of elevated prostate specific antigen (PSA) Inability to attain erection Nausea Psoriasiform dermatitis Surgical History History of appendectomy History of cholecystectomy History of colonoscopy with polypectomy 2019 in [place], [place] History of hemorrhoids Family History Father Cancer Mother Cancer Social History Smoking and tobacco status: former smoker Second hand smoke exposure: No Smoking risk assessment/counseling performed?: No Alcohol intake: current Alcohol intake frequency: holidays/special occasions only Desire information about alcohol rehabilitation?: No Counseling given: No Desire information about substance/drug rehabilitation?: No Counseling given: No Adopted: No Caregiver/support person: No Lives independently: Yes Household members: spouse Housing: House Marital status: Number of children: 2 service: No Current occupational status: retired Pets and animals: Yes Pets & animals: dog(s) History of recent travel: No Current gender identity: Male Dietary Habits: Current diet type/program: regular Caffeine: Yes Exercise: What type of physical activity do you participate in?: none Safety: Seatbelt use: always Helmet use: No Drive intoxicated or ride with intoxicated driver's license examiner?: never Vitals/I&O/Wt Last Vital Signs Temp 98.3 F 08/17/20 10:55 Pulse 69 08/17/20 18:57 Resp 18 08/17/20 18:00 BP 130/78 08/17/20 18:00 Pulse Ox 94 08/17/20 18:00 Weight last 48 hrs Weight 240 lb Physical Exam Narrative: EXAM NARRATIVE: GENERAL: Patient is alert, awake and oriented x3. NECK: No jugular vein distension. HEENT: No cyanosis. No icterus. No pallor. HEART: Regular S1 and S2. No murmur, rub or gallop. LUNGS: Clear to auscultate bilaterally. ABDOMEN: Soft, nontender and nondistended. Positive bowel sounds. No guarding, rebound or tenderness. CENTRAL NERVOUS SYSTEM: Grossly nonfocal. EXTREMITIES: Lower extremities without edema bilaterally. Pulses palpable in the lower extremities, both dorsalis pedis and posterior tibial. A&P Assessment and plan (1) Chest pain: Patient has questionable history of nicotine he denies it but it is mention in his past medical history. He has significant dyslipidemia with hypertriglyceridemia. His chest pain characteristics need to be explored with treadmill nuclear stress test. We will proceed with stress test in the morning. Continue aspirin statin. Beta-kit will be held due to bradycardia Status: Acute Qualifiers: Chest pain type: precordial pain Qualified Code(s): R07.2 - Precordial pain (2) Essential hypertension: Normotensive. 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
--- NOTE | 2020-08-17 22:06 | PC.NURSE ---
PT IS RESTING IN BED. PT DENIES PAIN AT THIS TIME. PT DENIES CP. WILL CONTINUE TO MONITOR.
[2020-08-17 22:49] LABS: LDL Cholesterol Direct 120 mg/dL (0-100)
[2020-08-17 23:38] LABS: Troponin 5 6HR Delta 0 ng/L (0-12)
[2020-08-17] MEDS: atorvastatin 40 mg Tablet PO (23:48)
[2020-08-17] MEDS: aspirin 81 mg EC Tablet PO (23:48)
[2020-08-18 04:00] VITALS: BP 132/77; PULSE 56; RESP 17; TEMP 36.5; O2SAT 98
[2020-08-18 05:43] VITALS: PULSE 56
--- NOTE | 2020-08-18 05:46 | PC.NURSE ---
PT IS RESTING IN BED. PT ADVISED NOT TO DRINK CAFFEINE. PT DENIES PAIN AT THIS TIME. WILL CONTINUE TO MONITOR.
--- NOTE | 2020-08-18 06:00 | ECG_ITS ---
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 Baseline heart rate was 75 beats per minute. Baseline blood pressure was 107/75 millimeters of mercury. Target heart rate was 157 beats per minute. Maximum heart rate achieved was 142, which was 90 % of the target heart rate. Maximum blood pressure was 174/87 millimeters of mercury. Total exercise time was Six minutes three-second. Maximum METs achieved was 7.0, maximum VO2 was 24.5. The reason for ending the test was maximum effort achieved. The patient complained of shortness of breath during the stress test, which then resolved at the end of the test. ELECTROCARDIOGRAM: BASELINE: Sinus rhythm, normal axis, no significant ST-T changes at the baseline noted. EXERCISE: At the peak exercise level, no significant ST-T changes suggestive of ischemia noted. RECOVERY: During the recovery period, heart rate dropped appropriately. No significant ST-T changes in the recovery suggestive of ischemia noted. CONCLUSION: 1. Exercise capacity fair. 2. Heart rate response was appropriate. 3. Blood pressure response was hypertensive. 4. Symptoms not suggestive of ischemia. 5. Electrocardiogram portion of the stress test was not suggestive of ischemia. 6. Nuclear scan will be documented separately. Electronically Signed On 08-18-2020 11:12:25 SENIOR MEDICAL WRITER by SANDRO PRINGLE [id number]
--- NOTE | 2020-08-18 06:19 | PC.NURSE ---
PT REFUSED EFFEXOR. PT WANTED TO HAVE SOMETHING TO EAT WITH MEDICATION. PT EDUCATED ON NPO STATUS. PT DIDN'T WANT MEDICATION.
[2020-08-18 07:21] VITALS: BP 153/81; PULSE 75; RESP 17; TEMP 37.1; O2SAT 98
[2020-08-18 08:25] VITALS: BP 126/87; PULSE 84
--- NOTE | 2020-08-18 09:10 | PC.CHAP ---
Pastoral Care Encounter/Spiritual Assessment Type of Contact [] Declined shuttler visit [] Patient/Family/Request visit [] Outpatient visit [] Follow-up visit [] Physician referral [] Code/Alert [] Routine visit [] Staff referral [] Actively dying [] Patient sleeping [] Family support [] [] Out of room [] Palliative care [] [] Receiving care in room [] Pre-surgical visit [] Trauma [] Long length of stay [] ICU visit [] Other: Relational/Emotional Strength [] Patient feels connected with others/family/visitors/staff [] Distress [] Loneliness/isolation [] Abandonment Spirituality of Patient [] Person of Melissa [] Attends Christian of their Melissa [] Believes in Prayer [] Reads Bible or Buddhism materials [] There are Spiritual issues to be addressed Safety And Health Consultant Interventions [] Prayer [] Active listening [] Non-anxious presence [] Spiritual/emotional support [] Crisis/trauma care [] Spiritual counseling [] Bereavement support [] Provided bereavement packet [] Provided Bible/devotional materials [] Provided toy/stuffed animal, coloring book to patient or family member [] Provided Communion [] Anointing/[place] [] Salvation [] Completed spiritual assessment [] Other: Impact on Illness or Injury [] Angry [] Fearful [] Anxious [] Often cries [] Exhaustion [] Unable to work [] Unable to attend moravian [] Unable to walk/stand [] Unable to read [] Unable to drive [] Unable to eat/drink [] Unable to sleep [] Unable to be with family [] Patient intubated [] Other: Summary Time spent with patient
[2020-08-18] MEDS: famotidine 20 mg Tablet PO (10:43)
[2020-08-18 11:04] VITALS: BP 139/81; PULSE 63; RESP 19; TEMP 36.4; O2SAT 97
--- NOTE | 2020-08-18 12:22 | PM.PN ---
Subjective Subjective: Interval history: Rule out overnight, stress test negative this morning. Denies any more chest pain Medications: Reviewed: Yes Vitals/I&O/Wt Last Vital Signs Temp 97.5 F L 08/18/20 11:04 Pulse 63 08/18/20 11:04 Resp 19 H 08/18/20 11:04 BP 139/81 08/18/20 11:04 Pulse Ox 97 08/18/20 11:04 08/17/20 08/18/20 08/18/20 22:59 06:59 14:59 Intake Total 220 / 220 120 / 340 Balance 220 / 220 120 / 340 Weight last 48 hrs Weight 240 lb Physical Exam Narrative: EXAM NARRATIVE: GENERAL: Patient is alert, awake and oriented x3. NECK: No jugular vein distension. HEENT: No cyanosis. No icterus. No pallor. HEART: Regular S1 and S2. No murmur, rub or gallop. LUNGS: Clear to auscultate bilaterally. ABDOMEN: Soft, nontender and nondistended. Positive bowel sounds. No guarding, rebound or tenderness. CENTRAL NERVOUS SYSTEM: Grossly nonfocal. EXTREMITIES: Lower extremities without edema bilaterally. Pulses palpable in the lower extremities, both dorsalis pedis and posterior tibial. Data : 08/17/20 11:20 08/17/20 11:20 A&P Assessment and plan (1) Chest pain: Rule out for acute coronary syndrome. Stress test negative patient will be discharged home. Status: Acute Qualifiers: Chest pain type: precordial pain Qualified Code(s): R07.2 - Precordial pain (2) Essential hypertension: Normotensive. Status: Acute (3) Dyslipidemia: Continue statin. Status: Acute (4) [place] on CPAP: Continue CPAP Status: Chronic Attestations Medical Necessity Statement*: Follow-up with Dr. Patel as an outpatient Coding Level of Care Code Acute Desk Top Publisher for [facility] Diagnoses Chest pain R07.2 Chest pain type: precordial pain Essential hypertension I10 Dyslipidemia E78.5 [place] on CPAP G47.33; Z99.89
[2020-08-18 12:29] VITALS: BP 139/81; PULSE 63; RESP 19; TEMP 36.4; O2SAT 97
--- NOTE | 2020-08-18 12:30 | PC.NURSE ---
PATIENT VERY RUSHED THROUGH DISCHARGE TEACHING. HE CONTINUES TO INTERRUPT NURSING WHILE TRYING TO EDUCATE, HE ALSO INTERRUPTS THE NURSE WHILE TRYING TO TALK TO THE PATIENT IN THE OTHER BED WITH THE SEMIPRIVATE ROOM. WILL CONTINUE TO TRY TO EDUCATE PATIENT. REINFORCEMENT MAY BE NEEDED.
--- NOTE | 2020-08-18 13:14 | PM.DCS ---
Discharge Providers Date of Admission: 08/17/20 14:22 Date of Discharge: August 18, 2020 Attending Provider at Admission: Nolvia Wilder MD Attending Provider at Discharge: Nolvia Wilder MD Diagnoses at Discharge Discharge Diagnosis (1) Chest pain: Status: Acute Qualifiers: Chest pain type: precordial pain Qualified Code(s): R07.2 - Precordial pain (2) Essential hypertension: Status: Acute (3) Dyslipidemia: Status: Acute (4) [place] on CPAP: Status: Chronic Reason for Visit Reason for Visit: CHEST PAIN X 4 DAYS Brief History: Hospital Course Hospital Course Patient presented to the hospital with c/o 4 days of chest pain as described in HPI from yesterday evening. EKG without acute ST-T wave changes. Troponin series with negative deltas. underwent stress test this morning due to concern for unstable angina, this test was negative. He is being discharged today in stable condition, recommended to follow with cardiology if chest pain recurs. Physical Exam Narrative: EXAM NARRATIVE: GEN: Awake, alert and oriented, no acute distress CVS: S1S2 N RS: CTA B/L Abd: Soft, nt/nd , bs+ PERCUSSION INSTRUCTOR: no focal neuro deficits Discharge Data Data Completed and Pending: Completed Studies During Hospitalization Category Date Time Status Sestamibi Stress Test Request Routi ne Exams 08/18/20 06:00 Completed XR chest 1V liam ble [id number] Urgent Exams 08/17/20 10:55 Completed NM satish perf SPECT r/s* 30301 Routin e Nuc Med 08/18/20 22:24 Completed Pending at discharge Category Date Time Status Sestamibi Stress Test Request Routi ne Exams 08/17/20 18:57 Stop Req Labs from last 24 hours 08/17/20 08/17/20 17:57 11:20 Troponin T Hi Sens 6Hr 6.00 Troponin T Hi Sens 6Hr Delta 0 Triglycerides 433 H Cholesterol 192 LDL Cholesterol Di rect 120 H LDL Cholesterol, C alc Not Reportable HDL Cholesterol 27 L LDL/HDL Ratio Not Reportable Cholesterol/HDL Ra lorraine 7.11 H Vitals: Last Vital Signs Temp 97.5 F L 08/18/20 12:29 Pulse 63 08/18/20 12:29 Resp 19 H 08/18/20 12:29 BP 139/81 08/18/20 12:29 Pulse Ox 97 08/18/20 12:29 Discharge Plan Discharge Patient Disposition: Home Condition: Stable Prescriptions: New atorvastatin 40 mg Tablet 40 mg PO BEDTIME Qty: 30 RF: 3 famotidine 20 mg Tablet 20 mg PO BID Qty: 60 RF: 3 Continued (DME) cpap Qty: 1 RF: 0 venlafaxine 150 mg capsule,extended release 24hr 150 mg PO DAILY@07 RF: 0 Discontinued naproxen 500 mg Tablet 1,000 mg PO PRN RF: 0 No Action lisinopril 40 mg Tablet 40 mg PO DAILY RF: 0 Discharge Orders: Discharge Order (Routine); Ordered 08/18/20 Ordered By: Zakia Brand Referrals: Zakia Brand MD [Physician] - 6 months (Please follow-up with Dr. Brand on Sunday, February 16 at 3:00P.M. If you habe any questions or need to reschedule. Please call ) Discharge Diet: Cardiac and Low Cholesterol Discharge Activity: Resume usual activity Patient Instructions: Famotidine (By mouth), Atorvastatin (By mouth), Chest Pain Stoplight Activity Restrictions/Additional Instructions: Follow-up with Dr. Brand in 6-month. If you continues to have chest pain which is worsening in frequency and duration please call Dr. 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
--- NOTE | 2020-08-18 22:24 | NMCV_ITS ---
NM satish perf SPECT r/s* [id number] Dagoberto Patel Age: 65 Gender: M : 1955 Exam Date: 08/18/2020 07:21 Ordering Phys: Zakia Brand MD ([email or web address]) Technologist: EDYTA Parnell Exam Location: [facility] Indications: CHEST PAIN STRESS TEST Please see separate stress test report in [facility] for full findings IMAGE PROTOCOL Rest/Stress 1 Exercise Day Radiopharmaceutical Dose (mCi) Administration Site Administered by Rest: Tc-99m 10.9 IV EDYTA Haskins Sestamibi Stress:Tc-99m 33.0 IV EDYTA Parnell Sestamitalia Rest: 18-Aug-2020 60 Discovery 630 Stress: 18-Aug-2020 30 Discovery 630 Supine position only as patient was unable to lay prone. Radiopharmaceutical was injected at 85 % maximum heart rate. SPECT RESULTS Technical Quality: Excellent Raw Data Analysis: Normal Image Corrections: No attenuation or motion correction applied Summed Stress Score: 0 Summed Rest Score: 0 Summed Difference Score: 0 PERFUSION FINDINGS Medium-sized area of patchy reduced tracer uptake noted in basal to distal inferior and basal to mid anterior anteroseptal wall on the rest images which improved over stress images suggestive of artifact FUNCTIONAL RESULTS (calculated via Gated SPECT) Stress Image LV EF (%): 60 Stress EDV (mL):95 TID: 1.2 Stress ESV (mL):38 Rest Image LV EF (%): 60 FUNCTIONAL FINDINGS: There is normal left ventricular systolic function. IMPRESSIONS This study is negative for ischemia.TID ratio is elevated which could be secondary to left ventricle hypertrophy/subendocardial ischemia in the absence of other parameters for coronary artery disease. EKG segment will be documented separately. Zakia Brand MD (Electronically Signed) Final Date: 18 August 2020 11:07 S
== END 2020-08-18 13:39 | disposition home or self-care (01) ==
LOC: ER 14:25 → CSU 14:44
PROVIDERS: Physician Assistant; Admitting Provider Student in an Organized Health Care Education/Training Program; Emergency Provider Family Medicine; Visit Provider Student in an Organized Health Care Education/Training Program
DX: R07.2 Precordial pain (principal); I10 Essential (primary) hypertension; E78.5 Hyperlipidemia, unspecified; G47.33 Obstructive sleep apnea (adult) (pediatric); Z99.89 Dependence on other enabling machines and devices; E66.9 Obesity, unspecified; Z68.34 Body mass index [BMI] 34.0-34.9, adult; Z87.891 Personal history of nicotine dependence
CPT/HCPCS: 36415; 71045; 78452; 80053; 80061; 83721; 83880; 84484; 85025; 85378; 93005; 93017; 94660; 99285; A9500; G0378